=== PATIENT | male | born 2000 | race African-American/Black ===

== ENCOUNTER 2025-09-15 16:28 | Outpatient (AMB) | payer OTHER, SELFPAY ==
--- NOTE | 2025-09-15 16:24 | A.OFFPC_ITS ---
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 History of Present Illness The patient is a 25-year-old male presenting for an initial visit to establish care for a general health check-up and to address a concern about his hair not growing. Establishment of care: This is the patient's first encounter to establish care, prompted by a desire for a general health check-up and a physical exam. He reports being sexually active and undergoes STI screening every three months or with a new partner. He has no significant past medical or surgical history. Alopecia: The patient reports that his hair has not been growing since high school and he has not cut it. He is concerned this could be related to an underlying health issue. Cannabis Use: The patient denies smoking cigarettes but reports smoking weed for the past 4 years. He estimates his usage at about one gram per day, but also describes it as a little to none. He denies any other illicit drug use. Surgical History: - Denies any surgical history. Social History: - Substance Use: Denies smoking cigarett es. - He reports smoking cannabis for 4 year s, approximately 1 gram a day. - He denies any other drug use. - Occupation: Works as a teacher. - Sexual History: Reports he is sexually active. - He undergoes STI screening every three months or with a new partner. Family History: - Denies any known family history of gelacio betes or heart disease. - Reports concern about his grandmother who is developing early signs of de mentia. Review of Systems - Integumentary: Reports his hair does n ot grow. - Psychiatric: Reports distrust of femal es. - All other systems reviewed and are neg ative. 10-point ROS reviewed and negative excep t as noted in HPI Past Medical History - Denies any past medical history. Health Maintenance - The patient is establishing care for a general health assessment. - Comprehensive lab work was ordered, in cluding a CBC, CMP, hemoglobin A1c, lipid panel, hepatitis B, HIV, magnesium, urinalysis, B12, folate, and vitamin D. - The patient is sexually active and rep orts getting screened for STIs every three months or with a new partner. - An STI panel including chlamydia, gono rrhea, and syphilis screening was offered and ordered. Physical Exam General: Well-appearing, in no acute distress. Vital signs: Within normal limits. HEENT: Normocephalic, atraumatic. PERRLA, EOMI. Conjunctiva clear, sclera anicteric. Oropharynx clear, mucous membranes moist. TMs intact bilaterally. Neck: Supple, no lymphadenopathy, no thyromegaly, no JVD or carotid bruits. Cardiovascular: RRR, normal S1/S2, no murmurs, rubs, or gallops. Peripheral pulses 2+ and symmetric. No edema. Respiratory: Lungs clear to auscultation bilaterally, no wheezes, rales, or rhonchi. Normal effort. Abdomen: Soft, non-tender, non-distended. Normoactive bowel sounds. No hepatosplenomegaly, no masses. MSK: Full range of motion, no joint swelling or deformity. Normal gait. Skin: Warm, dry, intact. No rashes, lesions, or pallor. Neuro: Alert and oriented x3. Cranial nerves II-XII intact. Strength 5/5 throughout. Sensation intact. Reflexes 2+ symmetric. Normal coordination and gait. Psych: Appropriate mood and affect. Normal judgment and insight. Plan 1. Establishment Of Care / Health Saleem coffman - A comprehensive blood workup will be o btained to establish a baseline and screen for underlying conditions. - Labs ordered include a complete blood count, comprehensive metabolic panel, hemoglobin A1c, lipid panel, hepatitis B, HIV, magnesium, urinalysis, B12, folate, and vitamin D. - A full physical will be completed at t he follow-up visit. - Scheduled for a follow-up appointment in two weeks to review lab results. 2. Alopecia - The patient's concern about lack of fraga ir growth will be investigated. - Potential causes discussed include ane jacqui, vitamin deficiencies (such as iron), or genetic factors. - The comprehensive blood work will help evaluate for these potential underlying deficiencies. Discussion Notes I explained to the patient that this initial visit serves to establish care and we would not be conducting a full physical today. We discussed his concern about the lack of hair growth, and I informed him that there is no specific test for hair itself, but that we can investigate potential underlying causes such as anemia or vitamin deficiencies with blood work; I also mentioned genetics as a possible factor. I outlined the plan to order a comprehensive panel of blood tests to get a baseline of his overall health, including a CBC, CMP, HbA1c, lipid panel, various vitamins. I emphasized the importance of completing the lab work before his follow-up appointment in two weeks, at which time we will review the results and proceed with any necessary next steps. Patient Instructions - Please go to the lab to have your bloo d drawn. - The lab is located in the clinic and i s open Monday through Monday, closing at 4:00 PM. - It is very important that you get your blood work done before your next appointment. - Return to the clinic in two weeks for a follow-up appointment to review your lab results. Medical Decision Making The patient is a 25-year-old male presenting for his initial encounter to establish primary care. He presents for a general wellness check and has a specific concern about lack of hair growth since high school. The primary goals for this visit are to establish care, create a baseline health profile, and begin investigating his stated concern. The differential diagnosis for his hair concern includes nutritional deficiencies (e.g., iron, vitamin D, B12), anemia, and genetic factors. Therefore, a comprehensive laboratory workup is the most logical first step to screen for these potential underlying etiologies and assess his overall metabolic and hematologic status. An STI screen is also warranted based on his reported sexual activity. A full physical examination is deferred until the follow-up visit in two weeks, at which point the laboratory results will be available for review. This staged approach allows for a more comprehensive and data-driven assessment at the next encounter. Total Time Statement Total time spent caring for the patient today includes pre-visit chart review, documentation, review of laboratory and diagnostic imaging results, medication reconciliation, medically necessary evaluation, counseling on diagnoses, care coordination, ordering appropriate tests and medications, review of tests p erformed by other providers, reporting test results to the patient, and communication with other healthcare providers. [facility] Medical History (Updated 09/16/25 @ 19:53 by Bruce Hendrix MD) Cannabis use disorder Alopecia Family History (Updated 09/15/25 @ 16:43 by Demetrio Torres MA) Mother High blood pressure Father No problems noted. Social History Housing: House Patient Tobacco Use Status: Never used Tobacco service: No Current occupational status: employed Cognitive needs: No Hearing needs: No Vision needs: No Physical exam (Primary Care) Vital Signs: Last Vital Signs Temp 97.9 F 09/15/25 16:35 Pulse 58 09/15/25 16:35 Resp 16 09/15/25 16:35 BP 120/66 09/15/25 16:35 Pulse Ox 99 09/15/25 16:35 Oxygen Delivery Method Room Air 09/15/25 16:35 BMI result Body Mass Index 25.3 Tobacco/Smoking Status: Tobacco use Status Tobacco use date assessed 09/15/25 09/15/25 16:28 Patient Tobacco Use Status Never used Tobacco 09/15/25 16:28 Coding Level of Care Code New Pt Level 4 (46551) Diagnoses Alopecia L65.9 Cannabis use disorder F12.90 Assessment & Plan Assessment & Plan (1) Alopecia: Code(s): L65.9 - Nonscarring hair loss, unspecified Category: Medical (2) Cannabis use disorder: Code(s): F12.90 - Cannabis use, unspecified, uncomplicated Category: Medical Plan Orders: Orders Complete Blood Count Auto Diff 09/15/25 Z13.9 - Encounter for screening, unspecified Hepatitis B Surface Antigen 09/15/25 Z13.9 - Encounter for screening, unspecified TSH reflex Free T4 09/15/25 Z13.9 - Encounter for screening, unspecified UA CC w/rflx Micro + Cult 09/15/25 Z13.9 - Encounter for screening, unspecified Vitamin B12 and Folate 09/15/25 Z13.9 - Encounter for screening, unspecified Comprehensive Met. Panel 09/15/25 Z13.9 - Encounter for screening, unspecified Hepatitis C Antibody 09/15/25 Z13.9 - Encounter for screening, unspecified HIV Ab/Ag 09/15/25 Z13.9 - Encounter for screening, unspecified Lipid Panel 09/15/25 Z13.9 - Encounter for screening, unspecified Hemoglobin A1c 09/15/25 Z13.9 - Encounter for screening, unspecified Magnesium 09/15/25 Z13.9 - Encounter for screening, unspecified Vitamin D 1,25 dihydroxy 09/15/25 Z13.9 - Encounter for screening, unspecified Hepatitis B Surface Antibody 09/15/25 Z13.9 - Encounter for screening, unspecified
[2025-09-15 16:35] VITALS: BP 120/66; PULSE 58; RESP 16; TEMP 36.6; O2SAT 99; BMI 25.3
== END 2025-09-15 17:00 | disposition home or self-care (01) ==
LOC: HO.HMCFMS 16:29
PROVIDERS: Visit Provider Student in an Organized Health Care Education/Training Program
DX: L65.9 Nonscarring hair loss, unspecified (principal); F12.90 Cannabis use, unspecified, uncomplicated

== ENCOUNTER 2025-09-29 08:55 | Outpatient (REF) | payer OTHER, SELFPAY ==
[2025-09-29 13:19] LABS: MANUAL DIFF FLAG NO
[2025-09-29 13:25] LABS: Appearance Urine Clear; Glucose Urine UA Negative (Negative); PH 6.0 (5.0-9.0); Specific Gravity - Urine >= 1.030 (1.005-1.025)
[2025-09-29 13:38] LABS: Hematocrit 45.6 % (42.0-52.0); Hemoglobin 15.4 g/dl (14.0-18.0); Imm Gran Abs Auto 0.01 X10*3/uL (0.00-0.03); Imm Gran Pct Auto 0.2 % (0.0-0.4); Lymphocytes Absolute Auto 1.7 X10*3/uL (1.2-4.9); Mean Corpuscular HGB Conc 33.8 g/dl (31.0-36.0); Mean Corpuscular Hemoglobin 27.7 pg (27.0-33.0); Mean Corpuscular Volume 82.0 fL (80.0-98.0); NRBC Abs Auto 0.000 X10*3/uL (0.0-0.012); NRBC Pct Auto 0.0 /100WBC (0.0-0.2); Platelet Count 286 X10*3/uL (160-400); Red Blood Count 5.56 X10*6/uL (4.60-5.80); White Blood Count 5.0 X10*3/uL (4.8-10.8)
[2025-09-29 14:30] LABS: Alanine Aminotransferase 14 U/L (0-40); Albumin Level 4.9 g/dL (3.5-5.0); Alkaline Phosphatase 55 U/L (39-117); Anion Gap 12 (12-20); Aspartate Amino Transferase 30 U/L (5-37); Blood Urea Nitrogen 18 mg/dL (9-16); Calcium 9.7 mg/dL (8.4-10.2); Carbon Dioxide 28 mmol/L (22-29); Chloride 106 mmol/L (96-108); Cholesterol 154 mg/dL (<200); Estimated Glomerular Filt Rate > 60; HDL Cholesterol 61 mg/dL (>40); Magnesium 2.2 mg/dL (1.6-2.6); Potassium 4.5 mmol/L (3.3-5.1); Sodium 141 mmol/L (135-145); Total Protein 7.5 g/dL (6.5-8.0); Triglycerides 64 mg/dL (<150)
[2025-09-29 18:56] LABS: Vitamin B12 360 pg/mL (200-900)
[2025-09-29 19:27] LABS: Folate 11.2 ng/mL (> or = 4.0)
[2025-09-30 08:30] LABS: HBS Num1 2.05 mIU/mL (0-7.99); HBsAGNum1 0.36 S/CO (0.00-0.99); HIV Num 1 0.07 S/CO (0.00-0.99); Hepatitis B Surface Antigen Negative (Negative); ~HepC Num1 0.09 S/CO (0.00-0.79); ~Hepatitis B Surface Antibody NONREACTIVE (Nonreactive); ~Hepatitis C Antibody Nonreactive (Nonreactive)
[2025-10-03 14:29] LABS: VITAMIN D (1,25 OH) D3 58 pg/mL; Vit D (1,25-Dihydroxy) Total 58 pg/mL (18-72); Vitamin D (1,25 OH) D2 <8 pg/mL
== END 2025-09-29 08:56 | disposition home or self-care (01) ==
LOC: HO.HKASLDS 08:55
PROVIDERS: PCP Student in an Organized Health Care Education/Training Program; Visit Provider Student in an Organized Health Care Education/Training Program
DX: Z11.4 Encounter for screening for human immunodeficiency virus [HIV] (principal); Z13.89 Encounter for screening for other disorder; Z13.6 Encounter for screening for cardiovascular disorders; Z13.1 Encounter for screening for diabetes mellitus; Z13.21 Encounter for screening for nutritional disorder; Z13.29 Encounter for screening for other suspected endocrine disorder
CPT/HCPCS: 36415; 80053; 80061; 81003; 82607; 82652; 82746; 83036; 83735; 84443; 85025; 86706; 86803; 87340; 87389

== ENCOUNTER 2025-09-30 09:44 | Outpatient (AMB) | payer OTHER, SELFPAY ==
--- NOTE | 2025-09-30 09:47 | A.OFFPC_ITS ---
Vital Signs 09/30/25 09:51 Height 6 ft Weight 180 lb 8 oz BMI 24.5 BP 121/78 Blood Pressure Location Rt brachial Position Sitting Pulse 67 Pulse Source Pulse Oximeter Temp 98.1 F Temp Source Oral Pulse Oximetry (%) 98 Oxygen Delivery Method Room Air Intake Visit Reasons: 2 wk - lab review Accompanied by: Self / Same As Patient Allergies No Known Allergies Allergy (Verified 09/30/25 09:48) Tobacco use date assessed: 09/30/25 Dental Screening Dental Screen Date: 09/30/25 Did you have a dental visit in the last 12 months?: Yes HPI HPI Comments History of Present Illness Details History of Present Illness The patient is a 25 year old individual presenting for a review of laboratory results. Elevated creatinine: A recent lab test showed a slightly elevated creatinine level. Hyperbilirubinemia: Recent labs revealed an elevated total bilirubin of 2.2 mg/dL, with a normal cutoff of 1.0 mg/dL. The patient is asymptomatic, reporting no symptoms, abdominal pain, or yellowing of the skin. Surgical History: - No prior surgical history was discusse d. Medications: - No current medications were discussed. Social History: - The patient discussed a recent breakup of a one-year relationship that had started as a friendship. Family History: - No family history was discussed. Diagnostic Results: - Complete Blood Count: White blood cell s, red blood cells, hemoglobin, and hematocrit are normal. - Comprehensive Metabolic Panel: Sodium and potassium are normal. - Renal Function: Creatinine is slightly elevated. - Glucose Metabolism: Glucose and hemogl obin A1c are normal. - Liver Function Test: Total bilirubin i s elevated at 2.2 mg/dL (cutoff 1.0 mg/dL); other liver markers are normal. - Lipid Panel: Triglycerides, total chol esterol, LDL, and HDL are normal. - Vitamins/Nutrients: Vitamin B12 and fo late are normal. - Thyroid Function Test: Normal. - Urinalysis: Normal. - Pending Results: Vitamin D, Hepatitis B, Hepatitis C, and HIV. Past Medical History - No past medical history was discussed. Health Maintenance - The patient underwent routine lab scre ening, including CBC, CMP, lipid panel, and A1c. - Screening for Vitamin D, Hepatitis B, Hepatitis C, and HIV is currently pending. - A follow-up with repeat labs in six mo [facility] was recommended. [facility] Medical History (Updated 09/30/25 @ 10:31 by Bruce Hendrix MD) Hyperbilirubinemia Elevated serum creatinine Cannabis use disorder Alopecia Family History Mother High blood pressure Father No problems noted. Social History Housing: House Patient Tobacco Use Status: Never used Tobacco service: No Current occupational status: employed Cognitive needs: No Hearing needs: No Vision needs: No Questionnaire PHQ-9 Over the last 2 weeks, how often have you been bothered by any of the following problems? 1. Little interest or pleasure in doing things: not at all 2. Feeling down, depressed, or hopeless: not at all 3. Trouble falling or staying asleep, or sleeping too much: not at all 4. Feeling tired or having little energy: not at all 5. Poor appetite or overeating: not at all 6. Feeling bad about yourself - or that you are a failure or have let yourself or your family down: not at all 7. Trouble concentrating on things, such as reading the newspaper or watching television: not at all 8. Moving or speaking so slowly that other people could have noticed. Or the opposite - being so fidgety or restless that you have been moving around a lot more than usual: not at all 9. Thoughts that you would be better off or of hurting yourself in some way: not at all Total score: 0 Depression Screening Interpretation: Negative Depression Screening Done: Yes Source: Developed by Drs. Gwyn Roger, Wanda Hirsch, Dorian Eng and colleagues, with an educational mao from [employer]. Thrive Questionnaire Date Thrive assessed: 09/30/25 I am a: Patient What is your living situation today?: I have a steady place to live Within the past 12 months, did the food you bought not last and you didn't have the money to get more?: Never true Within the past 12 months, did you worry whether your food would run out before you got money to buy more?: Never true Do you have trouble paying for medicines?: No Do you have trouble getting transportation to medical appointments?: No Do you have trouble paying your heating and electricity bill?: No Do you have trouble taking care of your child, family member or friend?: No Are you currently unemployed and looking for a job?: No Are you interested in more education?: Yes Please select the resources that you would like help with: None Currently or been in a relationship where the following occur: No concerns reported THRIVE Score: 0 AUDIT C Alcohol Use Questionnaire (AUDIT-C) 1. How often do you have a drink containing alcohol?: Never Total Score: 0 NAT-7 AMB Questionnaire NAT-7 Date NAT - 7 assessed: 09/30/25 Feeling nervous, anxious, or on edge: 0 = Not at all Not being able to stop or control worryin = Not at all Worrying too much about different things: 0 = Not at all Trouble relaxin = Not at all Being so restless that it is hard to sit still: 0 = Not at all Becoming easily annoyed or irritable: 0 = Not at all Feeling afraid as if something awful might happen: 0 = Not at all Total NAT-7 score (0-4 normal; 5-9 mild; 10-14 moderate; 15-21 severe): 0 Source: Developed by Drs. Gwyn Roger, Wanda Hirsch, Dorian Eng and colleagues, with an educational mao from [employer]. Review of Systems Narrative Review of Systems - Constitutional: Denies symptoms, denies jaundice. - Gastrointestinal: Denies abdominal pain. 10-point ROS reviewed and negative except as noted in HPI Physical exam (Primary Care) Vital Signs: Last Vital Signs Temp 98.1 F 09/30/25 09:51 Pulse 67 09/30/25 09:51 BP 121/78 09/30/25 09:51 Pulse Ox 98 09/30/25 09:51 Oxygen Delivery Method Room Air 09/30/25 09:51 BMI result Body Mass Index 24.5 Tobacco/Smoking Status: Tobacco use Status Tobacco use date assessed 09/30/25 09/30/25 09:48 Patient Tobacco Use Status Never used Tobacco 09/30/25 09:48 PHQ-9: PHQ-9 Score PHQ-9: Total score 0 09/30/25 10:33 Depression Screening Interpretation: Negative Thrive Assessment: Date of Thrive Assessment Date Thrive assessed 09/30/25 09/30/25 09:48 Currently or been in a relationship where the following occur: No concerns reported Narrative Physical Exam General: Well-appearing, in no acute distress. Vital signs: Within normal limits. HEENT: Normocephalic, atraumatic. PERRLA, EOMI. Conjunctiva clear, sclera anicteric. Oropharynx clear, mucous membranes moist. TMs intact bilaterally. Neck: Supple, no lymphadenopathy, no thyromegaly, no JVD or carotid bruits. Cardiovascular: RRR, normal S1/S2, no murmurs, rubs, or gallops. Peripheral pulses 2+ and symmetric. No edema. Respiratory: Lungs clear to auscultation bilaterally, no wheezes, rales, or rhonchi. Normal effort. Abdomen: Soft, non-tender, non-distended. Normoactive bowel sounds. No hepatosplenomegaly, no masses. MSK: Full range of motion, no joint swelling or deformity. Normal gait. Skin: Warm, dry, intact. No rashes, lesions, or pallor. Neuro: Alert and oriented x3. Cranial nerves II-XII intact. Strength 5/5 th roughout. Sensation intact. Reflexes 2+ symmetric. Normal coordination and gait. Psych: Appropriate mood and affect. Normal judgment and insight. Office Procedures Flu Questionnaire Does the patient have a severe egg allergy?: No Does the patient have severe life threatening allergies?: No Does the patient have a fever or illness today?: No Has the patient ever had Guillain-[place] Syndrome?: No Has the patient ever had any past reaction to a flu shot?: No Immunizations Fluarix [id number] (PF) 45 mcg (15 mcg x 3)/0.5 mL IM syringe Performing Provider: Bruce Hendrix MD Performing Location: [facility] [place] [facility] Documented (not given) by: Sary Dc CMA on 09/30/25 10:33 Reason Not Given: Not Given Coding Level of Care Code Est Pt Level 3 (74060) Diagnoses Elevated serum creatinine R79.89 Hyperbilirubinemia E80.6 Assessment & Plan Assessment & Plan (1) Elevated serum creatinine: Code(s): R79.89 - Other specified abnormal findings of blood chemistry Category: Medical (2) Hyperbilirubinemia: Code(s): E80.6 - Other disorders of bilirubin metabolism Category: Medical Plan Consent No procedures requiring formal consent were performed or discussed during this visit. The patient consented to the plan for follow-up communication, agreeing to be contacted only if pending lab results are abnormal. Patient was informed and verbally consented to the use of an ambient scribe for clinic note documentation during this visit. Plan 1. Elevated Creatinine - The slightly elevated creatinine is considered clinically insignificant given the patient's age and lack of other renal markers. - No further workup is indicated at this time. - Plan to monitor with repeat labs in six months. 2. Hyperbilirubinemia - The elevated total bilirubin of 2.2 mg/dL is noted as an isolated finding. - As the patient is asymptomatic, not jaundiced, and has normal results for other liver markers, this is considered a benign finding and not a cause for concern at present. - Recommended to repeat labs in six months to monitor the level. 3. Preventative Care - Pending labs include Vitamin D, Hepatitis B, Hepatitis C, and HIV. - Will contact the patient only if any of the pending results are abnormal. - Plan to follow up in six months to repeat lab work. Discussion Notes I reviewed the patient's lab results, noting that the majority were reassuringly normal, including the CBC, electrolytes, glucose, and lipids. I addressed the slightly elevated creatinine, explaining that it is not concerning given the patient's young age. I also discussed the elevated total bilirubin of 2.2, reassuring the patient that in the absence of symptoms like jaundice or abdominal pain, and with otherwise normal liver function tests, this finding is not a cause for immediate concern. I informed the patient that some results, including Vitamin D, hepatitis panel, and HIV, are still pending. We agreed that I will only contact the patient if any of these pending results are abnormal. I recommended a follow-up visit in six months to repeat the lab work. Patient Instructions - Most of your lab results are normal. - Your lab work showed slightly high levels of creatinine and bilirubin, but these are not concerning at this time because you are young and do not have any symptoms. - Some of your results are still pending, including Vitamin D, Hepatitis B, Hepatitis C, and HIV tests. - You will receive a call from me only if any of these pending results are abnormal. If you do not hear from me, it means the results were normal. - Please schedule an appointment to come back in six months to have your blood work done again. Medical Decision Making The patient is a 25-year-old asymptomatic individual presenting for a review of lab results. The findings of a mildly elevated creatinine and an isolated elevation in total bilirubin (2.2 mg/dL) were discussed. Given the patient's age and lack of symptoms, the elevated creatinine is considered clinically insignificant. The hyperbilirubinemia, in the context of normal transaminases and an asymptomatic patient, does not warrant further investigation at this time and is likely a benign finding. The management plan is conservative, involving monitoring and repeating labs in six months to assess for any changes. Pending results for Vitamin D and infectious diseases (Hepatitis B, C, and HIV) will be communicated to the patient only if abnormal, as agreed upon. Total Time Statement 20 MIN Total time spent caring for the patient today includes pre-visit chart review, documentation, review of laboratory and diagnostic imaging results, medication reconciliation, medically necessary evaluation, counseling on diagnoses, care coordination, ordering appropriate tests and medications, review of tests performed by other providers, reporting test results to the patient, and communication with other healthcare providers. Orders: Orders Influenza [id number] Immunization Today Z23 - Encounter for immunization
[2025-09-30 09:51] VITALS: BP 121/78; PULSE 67; TEMP 36.7; O2SAT 98; BMI 24.5
== END 2025-09-30 10:10 | disposition home or self-care (01) ==
LOC: HO.HMCFMS 09:45
PROVIDERS: Visit Provider Student in an Organized Health Care Education/Training Program
DX: R79.89 Other specified abnormal findings of blood chemistry (principal); E80.6 Other disorders of bilirubin metabolism; Z23 Encounter for immunization

== ENCOUNTER → 2025-09-30 09:44 | Outpatient (BNVA) | payer OTHER, SELFPAY | PROVIDERS: Visit Provider Student in an Organized Health Care Education/Training Program | DX: R79.89 Other specified abnormal findings of blood chemistry (principal); E80.6 Other disorders of bilirubin metabolism; Z28.9 Immunization not carried out for unspecified reason | CPT/HCPCS: 90471 ==